=== PATIENT | female | born 1935 | race Caucasian/White ===

== ENCOUNTER 2021-08-10 13:55 | Inpatient (IN) | payer OTHER, SELFPAY ==
[~2021-08-10] VITALS: Ht 165.1 cm; Wt 90.3 kg
[2021-08-10 14:00] VITALS: BP_SYST 122
[2021-08-10] MEDS ORDERED: FAMO20TA8 PO (15:43)
[2021-08-10] MEDS ORDERED: DIVA500T2 PO (15:43)
[2021-08-10] MEDS ORDERED: FLUO40CA8 PO (15:43)
[2021-08-10] MEDS ORDERED: NACL 0.9% 1,000 ML IV ONE (15:45)
[2021-08-10 16:11] LABS: BASOPHILS # (AUTO) 0.2 K/uL (0.0-0.2); EOSINOPHILS # (AUTO) 0.1 K/uL (0.0-0.4); EOSINOPHILS % (AUTO) 0.8 % (0.0-4.0); HEMATOCRIT 29.9 % (36-48); HEMOGLOBIN 9.9 g/dL (12.0-16.0); LYMPHOCYTES # (AUTO) 1.1 K/uL (1.0-5.5); LYMPHOCYTES % (AUTO) 9.2 % (20.5-51.5); MEAN CORPUSCULAR HEMOGLOBIN 31 pg (27-31); MEAN CORPUSCULAR HGB CONC 33 % (32-36); MEAN CORPUSCULAR VOLUME 92 fL (79.0-98.0); MONOCYTES # (AUTO) 1.3 K/uL (0.0-1.0); MONOCYTES % (AUTO) 11.2 % (1.7-9.3); NEUTROPHILS # (AUTO) 8.9 K/uL (1.8-7.7); NEUTROPHILS % (AUTO) 76.8 % (40.0-70.0); PLATELET COUNT (AUTO) 284 K/uL (130-430); RED BLOOD CELL COUNT(AUTO) 3.24 MIL/uL (4.2-6.2); RED CELL DISTRIBUTION WIDTH 16.3 % (9.0-15.0); WHITE BLOOD COUNT (AUTO) 11.6 K/uL (4.8-10.8)
[2021-08-10 16:28] LABS: ANION GAP 7 (5-15); CHLORIDE 100 mmol/L (98-107); CREATININE 0.86 mg/dL (0.55-1.30); GLUCOSE 120 mg/dL (70-99); POTASSIUM 3.1 mmol/L (3.5-5.1); SODIUM SERUM 138 mmol/L (136-145); UREA NITROGEN, BLOOD 17 mg/dL (8-21)
[2021-08-10 16:33] LABS: INR 1.2 (0.8-1.2)
[2021-08-10 16:37] LABS: ALBUMIN 2.1 g/dL (3.4-4.8); ASPARTATE AMINOTRANSFERASE 15 U/L (10-37); TOTAL BILIRUBIN 0.2 mg/dL (0.0-1.0)
[2021-08-10 16:38] LABS: ALCOHOL, BLOOD < 3 mg/dL (<10)
[2021-08-10] MEDS ORDERED: KCL 20 mEq in 100 mL (PREMIX) 100 ML IV ONE (17:00)
[2021-08-10 17:01] LABS: ALANINE AMINOTRANSFERASE 12 U/L (12-78)
[2021-08-10 17:09] LABS: BILIRUBIN,URINE NEGATIVE (NEGATIVE); CLARITY/URINE CLEAR (CLEAR); GLUCOSE,URINE NEGATIVE (NEGATIVE); KETONES,URINE TRACE (NEGATIVE); LEUKOCYTE ESTERASE ,URINE NEGATIVE (NEGATIVE); NITRITE, URINE POSITIVE (NEGATIVE); PROTEIN URINE NEGATIVE (NEGATIVE); UROBILINOGEN,URINE 0.2 (0.2-1.0)
[2021-08-10 17:27] LABS: BLOOD, URINE TRACE (NEGATIVE); COLOR,URINE AMBER (YELLOW)
[2021-08-10] MEDS ORDERED: AZITHROMYCIN 500 MG in NS 250 ML IV ONE (17:30)
[2021-08-10] MEDS ORDERED: cefTRIAXone 1 GM IVPB PREMIX 50 ML IV ONE (17:30)
[2021-08-10] MEDS ORDERED: AZITHROMYCIN 500 MG/VIAL (ZITHROMAX) IV ONE (17:31)
[2021-08-10 17:38] LABS: BACTERIA,URINE FEW /HPF (None Seen); MUCUS,URINE None Seen /LPF (None Seen); RBC,URINE 0-3 /HPF (0-3); WBC,URINE 0-3 /HPF (0-3)
[2021-08-10 17:41] LABS: BARBITURATE, URINE NEGATIVE (NEG <=200); BENZODIAZEPINE, URINE NEGATIVE (NEG <=150); CANNABINOID, URINE NEGATIVE (NEG <=50); COCAINE, URINE NEGATIVE (NEG <=150); METHAMPHETAMINES SCREEN,URINE NEGATIVE (NEG <=500); OPIATE, URINE POSITIVE (NEG <=100); PHENCYCLIDINE SCREEN,URINE NEGATIVE (NEG <=25); UR TRICYCLIC ANTIDEPRESSANTS NEGATIVE (NEG <=300); URINE AMPHETAMINE NEGATIVE (NEG <=500); URINE METHADONE NEGATIVE (NEG <=200); URINE OXYCODONE SCREEN NEGATIVE (NEG <=100); URINE PROPOXYPHENE SCREEN NEGATIVE (NEG <=300)
[2021-08-10] MEDS ORDERED: FUROSEMIDE 20 MG/2 ML VIAL IVP ONE (17:45)
[2021-08-10] MEDS: cefTRIAXone 1 GM IVPB PREMIX 50 ML IV SCH (20:00)
[2021-08-10] MEDS ORDERED: ALBUTEROL SULFATE 0.083% 2.5 MG/3 ML VIAL.NEB INH PRN (20:00)
[2021-08-10] MEDS ORDERED: POTASSIUM CHLORIDE 20 MEQ TAB.PRT.SR PO ONE (20:15)
[2021-08-10] MEDS ORDERED: dilTIAZem HCL IVP 5 MG/ML VIAL IVP ONE (21:45)
[2021-08-11] VITALS (7 sets, daily range): BP systolic 112–135
[2021-08-11] MEDS: ENOXAPARIN SODIUM 100 MG/ML SYRINGE SUBCUT SCH ×3 (00:47→21:38)
[2021-08-11 06:59] LABS: BASOPHILS % (AUTO) 0.2 % (0.0-2.0); EOSINOPHILS # (AUTO) 0.2 K/uL (0.0-0.4); EOSINOPHILS % (AUTO) 1.6 % (0.0-4.0); HEMATOCRIT 28.2 % (36-48); HEMOGLOBIN 9.2 g/dL (12.0-16.0); LYMPHOCYTES # (AUTO) 1.1 K/uL (1.0-5.5); LYMPHOCYTES % (AUTO) 9.7 % (20.5-51.5); MEAN CORPUSCULAR HEMOGLOBIN 30 pg (27-31); MEAN CORPUSCULAR HGB CONC 33 % (32-36); MEAN CORPUSCULAR VOLUME 92 fL (79.0-98.0); MONOCYTES # (AUTO) 1.2 K/uL (0.0-1.0); MONOCYTES % (AUTO) 10.6 % (1.7-9.3); NEUTROPHILS % (AUTO) 77.9 % (40.0-70.0); PLATELET COUNT (AUTO) 311 K/uL (130-430); RED BLOOD CELL COUNT(AUTO) 3.05 MIL/uL (4.2-6.2); RED CELL DISTRIBUTION WIDTH 16.8 % (9.0-15.0); WHITE BLOOD COUNT (AUTO) 11.6 K/uL (4.8-10.8)
[2021-08-11 07:02] LABS: TOTAL IRON BIND. CAPACITY 132 ug/dL (250-450)
[2021-08-11 07:12] LABS: ALANINE AMINOTRANSFERASE 4 U/L (12-78); ALBUMIN 1.8 g/dL (3.4-4.8); ANION GAP 7 (5-15); ASPARTATE AMINOTRANSFERASE 15 U/L (10-37); CHLORIDE 103 mmol/L (98-107); CREATININE 0.59 mg/dL (0.55-1.30); GLUCOSE 88 mg/dL (70-99); POTASSIUM 3.8 mmol/L (3.5-5.1); SODIUM SERUM 140 mmol/L (136-145); TOTAL BILIRUBIN 0.1 mg/dL (0.0-1.0); UREA NITROGEN, BLOOD 13 mg/dL (8-21)
[2021-08-11 07:37] LABS: THYROID STIMULATING HORMONE 5.1 uIu/mL (0.36-3.74)
[2021-08-11] MEDS ORDERED: AMIODARONE HCL 200 MG TABLET PO ONE (08:45)
[2021-08-11] MEDS ORDERED: CARVEDILOL 3.125 MG TABLET (COREG) PO ONE (09:00)
[2021-08-11] MEDS ORDERED: *LOVENOX 1MG/KG Q12H/PHARMACY XX ONE (09:00)
[2021-08-11] MEDS ORDERED: DIVALPROEX SODIUM 500 MG TABLET( DEPAKOTE) PO ONE (09:15)
[2021-08-11] MEDS ORDERED: FAMOTIDINE 20 MG TABLET PO ONE (09:15)
[2021-08-11] MEDS ORDERED: FLUoxetine HCL 20 MG CAPSULE (PROzac) PO ONE (09:15)
[2021-08-11] MEDS: AMIODARONE HCL 200 MG TABLET PO SCH ×2 (15:09→21:35)
[2021-08-11] MEDS ORDERED: cefTRIAXone 1 GM IVPB PREMIX 50 ML IV ONE (21:07)
[2021-08-11] MEDS: cefTRIAXone 1 GM IVPB PREMIX 50 ML IV SCH (21:30)
[2021-08-11] MEDS: DIVALPROEX SODIUM 500 MG TABLET( DEPAKOTE) PO SCH (21:36)
[2021-08-11] MEDS: CARVEDILOL 3.125 MG TABLET (COREG) PO SCH (21:37)
[2021-08-12 06:00] VITALS: BP_SYST 116
[2021-08-12] MEDS: AMIODARONE HCL 200 MG TABLET PO SCH ×3 (06:53→21:21)
[2021-08-12 07:02] LABS: BASOPHILS % (AUTO) 0.1 % (0.0-2.0); EOSINOPHILS # (AUTO) 0.2 K/uL (0.0-0.4); EOSINOPHILS % (AUTO) 1.5 % (0.0-4.0); HEMATOCRIT 25.5 % (36-48); HEMOGLOBIN 8.3 g/dL (12.0-16.0); LYMPHOCYTES # (AUTO) 1.2 K/uL (1.0-5.5); LYMPHOCYTES % (AUTO) 12.1 % (20.5-51.5); MEAN CORPUSCULAR HEMOGLOBIN 30 pg (27-31); MEAN CORPUSCULAR HGB CONC 33 % (32-36); MEAN CORPUSCULAR VOLUME 93 fL (79.0-98.0); MONOCYTES # (AUTO) 1.2 K/uL (0.0-1.0); MONOCYTES % (AUTO) 12.3 % (1.7-9.3); NEUTROPHILS # (AUTO) 7.5 K/uL (1.8-7.7); PLATELET COUNT (AUTO) 328 K/uL (130-430); RED BLOOD CELL COUNT(AUTO) 2.74 MIL/uL (4.2-6.2); RED CELL DISTRIBUTION WIDTH 16.6 % (9.0-15.0); WHITE BLOOD COUNT (AUTO) 10.1 K/uL (4.8-10.8)
[2021-08-12 07:56] LABS: ALANINE AMINOTRANSFERASE 4 U/L (12-78); ALBUMIN 1.6 g/dL (3.4-4.8); ANION GAP 6 (5-15); ASPARTATE AMINOTRANSFERASE 15 U/L (10-37); CHLORIDE 103 mmol/L (98-107); CREATININE 0.64 mg/dL (0.55-1.30); GLUCOSE 99 mg/dL (70-99); POTASSIUM 3.4 mmol/L (3.5-5.1); SODIUM SERUM 140 mmol/L (136-145); THYROID STIMULATING HORMONE 3.99 uIu/mL (0.36-3.74); TOTAL BILIRUBIN 0.2 mg/dL (0.0-1.0); UREA NITROGEN, BLOOD 10 mg/dL (8-21)
[2021-08-12 09:51] LABS: CHOLESTEROL 82 mg/dL (<200); HDL CHOLESTEROL 21 mg/dL (>55); LDL CHOLESTEROL 46 mg/dL (<100); TRIGLYCERIDES 83 mg/dL (30-150)
[2021-08-12 11:37] VITALS: BP_SYST 138
[2021-08-12] MEDS: FLUoxetine HCL 20 MG CAPSULE (PROzac) PO SCH (13:02)
[2021-08-12] MEDS: FAMOTIDINE 20 MG TABLET PO SCH (13:02)
[2021-08-12] MEDS: ENOXAPARIN SODIUM 100 MG/ML SYRINGE SUBCUT SCH ×2 (13:02→21:24)
[2021-08-12] MEDS: DIVALPROEX SODIUM 500 MG TABLET( DEPAKOTE) PO SCH ×2 (13:03→21:19)
[2021-08-12] MEDS: CARVEDILOL 3.125 MG TABLET (COREG) PO SCH ×2 (13:04→21:20)
[2021-08-12 16:25] VITALS: BP_SYST 140
[2021-08-12] MEDS ORDERED: ED NON STOCK ORDER 1 EA MISC PO ONE (18:30)
[2021-08-12 20:12] VITALS: BP_SYST 118
[2021-08-12] MEDS: cefTRIAXone 1 GM IVPB PREMIX 50 ML IV SCH (21:19)
[2021-08-13] VITALS: BP_SYST 122
[2021-08-13] MEDS: AMIODARONE HCL 200 MG TABLET PO SCH ×3 (05:49→21:20)
[2021-08-13 08:00] VITALS: BP_SYST 117
[2021-08-13] MEDS: DIVALPROEX SODIUM 500 MG TABLET( DEPAKOTE) PO SCH ×2 (09:07→21:20)
[2021-08-13] MEDS: FAMOTIDINE 20 MG TABLET PO SCH (09:08)
[2021-08-13] MEDS: FLUoxetine HCL 20 MG CAPSULE (PROzac) PO SCH (09:09)
[2021-08-13] MEDS: ENOXAPARIN SODIUM 100 MG/ML SYRINGE SUBCUT SCH ×2 (09:11→21:20)
[2021-08-13] MEDS: PATIENT'S OWN CAP PO SCH ×2 (14:15→18:05)
[2021-08-13 14:31] VITALS: BP_SYST 116
[2021-08-13 18:46] VITALS: BP_SYST 118
[2021-08-13 20:00] VITALS: BP_SYST 130
[2021-08-13] MEDS: cefTRIAXone 1 GM IVPB PREMIX 50 ML IV SCH (21:19)
[2021-08-13] MEDS: CARVEDILOL 3.125 MG TABLET (COREG) PO SCH (21:20)
[2021-08-14] VITALS: BP_SYST 128
[2021-08-14] MEDS: AMIODARONE HCL 200 MG TABLET PO SCH ×2 (06:12→21:30)
[2021-08-14] MEDS: PATIENT'S OWN CAP PO SCH ×3 (07:00→17:00)
[2021-08-14] MEDS: FLUoxetine HCL 20 MG CAPSULE (PROzac) PO SCH (09:00)
[2021-08-14] MEDS: CARVEDILOL 3.125 MG TABLET (COREG) PO SCH ×2 (09:00→21:00)
[2021-08-14] MEDS: ACETAMINOPHEN 325 MG TABLET PO PRN ×2 (09:10→21:31)
[2021-08-14] MEDS: DIVALPROEX SODIUM 500 MG TABLET( DEPAKOTE) PO SCH ×2 (09:10→21:29)
[2021-08-14] MEDS: FAMOTIDINE 20 MG TABLET PO SCH (09:11)
[2021-08-14] MEDS: ENOXAPARIN SODIUM 100 MG/ML SYRINGE SUBCUT SCH ×2 (09:13→21:31)
[2021-08-14 11:31] VITALS: BP_SYST 104
[2021-08-14 15:31] VITALS: BP_SYST 110
[2021-08-14 21:20] VITALS: BP_SYST 110
[2021-08-14] MEDS: cefTRIAXone 1 GM IVPB PREMIX 50 ML IV SCH (21:29)
[2021-08-15 00:30] VITALS: BP_SYST 135
[2021-08-15] MEDS: PATIENT'S OWN CAP PO SCH ×3 (07:00→17:00)
[2021-08-15 07:49] LABS: BASOPHILS % (AUTO) 0.3 % (0.0-2.0); EOSINOPHILS # (AUTO) 0.1 K/uL (0.0-0.4); EOSINOPHILS % (AUTO) 0.9 % (0.0-4.0); HEMATOCRIT 25.4 % (36-48); HEMOGLOBIN 8.3 g/dL (12.0-16.0); LYMPHOCYTES # (AUTO) 1.2 K/uL (1.0-5.5); LYMPHOCYTES % (AUTO) 18.4 % (20.5-51.5); MEAN CORPUSCULAR HEMOGLOBIN 30 pg (27-31); MEAN CORPUSCULAR HGB CONC 33 % (32-36); MEAN CORPUSCULAR VOLUME 92 fL (79.0-98.0); MONOCYTES # (AUTO) 1.2 K/uL (0.0-1.0); MONOCYTES % (AUTO) 18.4 % (1.7-9.3); NEUTROPHILS # (AUTO) 4.1 K/uL (1.8-7.7); PLATELET COUNT (AUTO) 388 K/uL (130-430); RED BLOOD CELL COUNT(AUTO) 2.78 MIL/uL (4.2-6.2); RED CELL DISTRIBUTION WIDTH 16.3 % (9.0-15.0); WHITE BLOOD COUNT (AUTO) 6.6 K/uL (4.8-10.8)
[2021-08-15 08:00] VITALS: BP_SYST 122
[2021-08-15 08:04] LABS: ALANINE AMINOTRANSFERASE 6 U/L (12-78); ALBUMIN 1.6 g/dL (3.4-4.8); ANION GAP 6 (5-15); ASPARTATE AMINOTRANSFERASE 18 U/L (10-37); CALCIUM 7.2 mg/dL (8.4-11.0); CHLORIDE 101 mmol/L (98-107); CREATININE 0.68 mg/dL (0.55-1.30); GLUCOSE 75 mg/dL (70-99); SODIUM SERUM 138 mmol/L (136-145); TOTAL BILIRUBIN 0.2 mg/dL (0.0-1.0); UREA NITROGEN, BLOOD 8 mg/dL (8-21)
[2021-08-15] MEDS: ENOXAPARIN SODIUM 100 MG/ML SYRINGE SUBCUT SCH (08:37)
[2021-08-15] MEDS: AMIODARONE HCL 200 MG TABLET PO SCH ×2 (08:39→21:13)
[2021-08-15] MEDS: DIVALPROEX SODIUM 500 MG TABLET( DEPAKOTE) PO SCH ×2 (08:40→21:11)
[2021-08-15] MEDS: CARVEDILOL 3.125 MG TABLET (COREG) PO SCH ×2 (08:40→21:00)
[2021-08-15] MEDS: FAMOTIDINE 20 MG TABLET PO SCH (08:40)
[2021-08-15] MEDS: FLUoxetine HCL 20 MG CAPSULE (PROzac) PO SCH (08:41)
[2021-08-15] MEDS ORDERED: POTASSIUM CHLORIDE 20 MEQ/PKT PACKET PO ONE (10:30)
[2021-08-15 11:44] VITALS: BP_SYST 119
[2021-08-15 16:23] VITALS: BP_SYST 122
[2021-08-15 20:04] VITALS: BP_SYST 110
[2021-08-15] MEDS: cefTRIAXone 1 GM IVPB PREMIX 50 ML IV SCH (21:10)
[2021-08-15] MEDS: APIXABAN 2.5 MG TABLET PO SCH (21:11)
[2021-08-16] VITALS (7 sets, daily range): BP systolic 116–129
[2021-08-16] MEDS: PATIENT'S OWN CAP PO SCH ×3 (07:00→17:38)
[2021-08-16] MEDS: FLUoxetine HCL 20 MG CAPSULE (PROzac) PO SCH (08:40)
[2021-08-16] MEDS: FAMOTIDINE 20 MG TABLET PO SCH (08:41)
[2021-08-16] MEDS: DIVALPROEX SODIUM 500 MG TABLET( DEPAKOTE) PO SCH ×2 (08:41→21:52)
[2021-08-16] MEDS: AMIODARONE HCL 200 MG TABLET PO SCH ×2 (08:43→21:00)
[2021-08-16] MEDS: APIXABAN 2.5 MG TABLET PO SCH ×2 (08:44→21:54)
[2021-08-16] MEDS: CARVEDILOL 3.125 MG TABLET (COREG) PO SCH ×2 (08:45→21:52)
[2021-08-16] MEDS: ACETAMINOPHEN 325 MG TABLET PO PRN (17:39)
[2021-08-16] MEDS: cefTRIAXone 1 GM IVPB PREMIX 50 ML IV SCH (21:50)
[2021-08-17 00:16] VITALS: BP_SYST 128
[2021-08-17] MEDS: PATIENT'S OWN CAP PO SCH ×3 (06:56→16:40)
[2021-08-17 07:26] LABS: ANION GAP 6 (5-15); CHLORIDE 101 mmol/L (98-107); CREATININE 0.67 mg/dL (0.55-1.30); GLUCOSE 93 mg/dL (70-99); POTASSIUM 3.2 mmol/L (3.5-5.1); SODIUM SERUM 140 mmol/L (136-145); UREA NITROGEN, BLOOD 6 mg/dL (8-21)
[2021-08-17 08:01] VITALS: BP_SYST 118
[2021-08-17 08:33] LABS: BASOPHILS % (AUTO) 0.3 % (0.0-2.0); EOSINOPHILS % (AUTO) 0.8 % (0.0-4.0); HEMATOCRIT 25.3 % (36-48); HEMOGLOBIN 8.4 g/dL (12.0-16.0); LYMPHOCYTES # (AUTO) 1.1 K/uL (1.0-5.5); LYMPHOCYTES % (AUTO) 18.5 % (20.5-51.5); MEAN CORPUSCULAR HEMOGLOBIN 30 pg (27-31); MEAN CORPUSCULAR HGB CONC 33 % (32-36); MEAN CORPUSCULAR VOLUME 91 fL (79.0-98.0); MONOCYTES # (AUTO) 0.9 K/uL (0.0-1.0); MONOCYTES % (AUTO) 15.4 % (1.7-9.3); NEUTROPHILS # (AUTO) 3.8 K/uL (1.8-7.7); PLATELET COUNT (AUTO) 335 K/uL (130-430); RED BLOOD CELL COUNT(AUTO) 2.77 MIL/uL (4.2-6.2); RED CELL DISTRIBUTION WIDTH 16.1 % (9.0-15.0); WHITE BLOOD COUNT (AUTO) 5.8 K/uL (4.8-10.8)
[2021-08-17 08:57] LABS: CALCIUM 6.7 mg/dL (8.4-11.0)
[2021-08-17] MEDS: CARVEDILOL 3.125 MG TABLET (COREG) PO SCH ×2 (09:00→21:47)
[2021-08-17] MEDS: FAMOTIDINE 20 MG TABLET PO SCH (09:46)
[2021-08-17] MEDS: DIVALPROEX SODIUM 500 MG TABLET( DEPAKOTE) PO SCH ×2 (09:46→21:48)
[2021-08-17] MEDS: FLUoxetine HCL 20 MG CAPSULE (PROzac) PO SCH (09:46)
[2021-08-17] MEDS: APIXABAN 2.5 MG TABLET PO SCH ×2 (09:48→21:51)
[2021-08-17] MEDS: AMIODARONE HCL 200 MG TABLET PO SCH ×2 (09:53→21:48)
[2021-08-17] MEDS ORDERED: CALCIUM GLUCONATE 1 GM in NS 100 ML IV ONE (10:00)
[2021-08-17] MEDS ORDERED: AMIO200T61 PO (10:59)
[2021-08-17] MEDS ORDERED: APIX2.5T PO (10:59)
[2021-08-17] MEDS ORDERED: COR3.125 PO (10:59)
[2021-08-17] MEDS ORDERED: CALC-823 PO (11:00)
[2021-08-17] MEDS ORDERED: POTASSIUM CHLORIDE 20 MEQ TAB.PRT.SR PO ONE (11:15)
[2021-08-17 12:00] VITALS: BP_SYST 130
[2021-08-17 16:00] VITALS: BP_SYST 131
[2021-08-17 20:00] VITALS: BP_SYST 135
[2021-08-17] MEDS: cefTRIAXone 1 GM IVPB PREMIX 50 ML IV SCH (21:46)
[2021-08-18 00:35] VITALS: BP_SYST 99
[2021-08-18 06:42] LABS: BASOPHILS % (AUTO) 0.5 % (0.0-2.0); EOSINOPHILS # (AUTO) 0.1 K/uL (0.0-0.4); EOSINOPHILS % (AUTO) 1.4 % (0.0-4.0); HEMATOCRIT 26.9 % (36-48); HEMOGLOBIN 8.8 g/dL (12.0-16.0); LYMPHOCYTES # (AUTO) 1.2 K/uL (1.0-5.5); LYMPHOCYTES % (AUTO) 20.5 % (20.5-51.5); MEAN CORPUSCULAR HEMOGLOBIN 30 pg (27-31); MEAN CORPUSCULAR HGB CONC 33 % (32-36); MEAN CORPUSCULAR VOLUME 92 fL (79.0-98.0); MONOCYTES # (AUTO) 0.8 K/uL (0.0-1.0); MONOCYTES % (AUTO) 13.1 % (1.7-9.3); NEUTROPHILS # (AUTO) 3.9 K/uL (1.8-7.7); NEUTROPHILS % (AUTO) 64.5 % (40.0-70.0); PLATELET COUNT (AUTO) 336 K/uL (130-430); RED BLOOD CELL COUNT(AUTO) 2.93 MIL/uL (4.2-6.2); RED CELL DISTRIBUTION WIDTH 16.4 % (9.0-15.0)
[2021-08-18] MEDS: PATIENT'S OWN CAP PO SCH ×3 (06:44→16:25)
[2021-08-18 06:58] LABS: ALBUMIN 1.5 g/dL (3.4-4.8); ANION GAP 6 (5-15); ASPARTATE AMINOTRANSFERASE 27 U/L (10-37); C-REACTIVE PROTEIN QUANT 5.2 mg/dL (0-0.5); CALCIUM 7.3 mg/dL (8.4-11.0); CHLORIDE 101 mmol/L (98-107); CREATININE 0.72 mg/dL (0.55-1.30); GLUCOSE 83 mg/dL (70-99); PHOSPHORUS 3.3 mg/dL (2.7-4.5); POTASSIUM 3.9 mmol/L (3.5-5.1); SODIUM SERUM 137 mmol/L (136-145); TOTAL BILIRUBIN 0.2 mg/dL (0.0-1.0); UREA NITROGEN, BLOOD 6 mg/dL (8-21)
[2021-08-18 08:27] VITALS: BP_SYST 132
[2021-08-18 08:45] LABS: ALANINE AMINOTRANSFERASE 9 U/L (12-78)
[2021-08-18] MEDS: FAMOTIDINE 20 MG TABLET PO SCH (09:02)
[2021-08-18] MEDS: FLUoxetine HCL 20 MG CAPSULE (PROzac) PO SCH (09:03)
[2021-08-18] MEDS: CARVEDILOL 3.125 MG TABLET (COREG) PO SCH (09:03)
[2021-08-18] MEDS: DIVALPROEX SODIUM 500 MG TABLET( DEPAKOTE) PO SCH (09:03)
[2021-08-18] MEDS: AMIODARONE HCL 200 MG TABLET PO SCH (09:05)
[2021-08-18] MEDS: APIXABAN 2.5 MG TABLET PO SCH (09:06)
[2021-08-18 09:12] LABS: ERYTHROCYTE SEDIMENTATION RATE 48 MM/HR (0-20)
[2021-08-18 12:42] VITALS: BP_SYST 100
[2021-08-18] MEDS: ACETAMINOPHEN 325 MG TABLET PO PRN (16:24)
[2021-08-18 16:26] VITALS: BP_SYST 103
[2021-08-18 17:10] VITALS: BP_SYST 106
== END 2021-08-18 17:50 | disposition home health service (06) | DRG 308 ==
LOC: SED 13:55 → STU 19:59
PROVIDERS: ADMIT Internal Medicine Hospice and Palliative Medicine; ATTEND Internal Medicine Hospice and Palliative Medicine
DX: I48.91 Unspecified atrial fibrillation (principal); G93.41 Metabolic encephalopathy; N39.0 Urinary tract infection, site not specified; I50.9 Heart failure, unspecified; G40.909 Epilepsy, unspecified, not intractable, without status epilepticus; Z20.822 Contact with and (suspected) exposure to COVID-19; I11.0 Hypertensive heart disease with heart failure; E87.6 Hypokalemia; F03.90 Unspecified dementia, unspecified severity, without behavioral disturbance, psychotic disturbance, mood disturbance, and anxiety; Z79.899 Other long term (current) drug therapy; Z86.73 Personal history of transient ischemic attack (TIA), and cerebral infarction without residual deficits; Z87.891 Personal history of nicotine dependence; Z90.710 Acquired absence of both cervix and uterus; Z93.3 Colostomy status
CPT/HCPCS: 36415; 70450-TC; 71045; 76376; 76700-TC; 80048; 80053; 80061; 80164; 80307; 81000; 83540; 83550; 83605; 83735; 83880; 84100; 84443; 84484; 85025; 85610-TC; 85651-TC; 85730-TC; 86140; 87040; 87070-TC; 87081; 87086; 92610-GN; 93005; 93306; 94760; 95816; 96361; 96365; 96368; 97110-GP; 97116-GP; 97530-GP; 99285; G0378; G0482; J0456; J0610; J0696; J1650; J1940; J3480; J3490

== ENCOUNTER 2022-06-21 21:48 | Inpatient (IN) | payer OTHER ==
[~2022-06-21] VITALS: Ht 170.2 cm; Wt 62.1 kg
[~2022-06-21 21:48] MED LIST: ALBU2.5V7 INH; AMIO200T61 PO; APIX2.5T PO; CALC-823 PO; CARV25TA55 GT; COR3.125 PO; DIVA500T2 PO; FAMO20TA8 PO; FLUO40CA8 PO; FURO-150 PO
[2022-06-21 22:51] VITALS: BP_SYST 106
[2022-06-22 02:44] LABS: BASOPHILS # (AUTO) 0.1 K/uL (0.0-0.2); BASOPHILS % (AUTO) 0.5 % (0.0-2.0); EOSINOPHILS % (AUTO) 0.1 % (0.0-4.0); HEMATOCRIT 26.3 % (36-48); HEMOGLOBIN 8.8 g/dL (12.0-16.0); LYMPHOCYTES # (AUTO) 1.2 K/uL (1.0-5.5); LYMPHOCYTES % (AUTO) 5.4 % (20.5-51.5); MEAN CORPUSCULAR HEMOGLOBIN 30 pg (27-31); MEAN CORPUSCULAR HGB CONC 34 % (32-36); MEAN CORPUSCULAR VOLUME 88 fL (79.0-98.0); MONOCYTES # (AUTO) 2.9 K/uL (0.0-1.0); MONOCYTES % (AUTO) 12.6 % (1.7-9.3); NEUTROPHILS # (AUTO) 18.6 K/uL (1.8-7.7); NEUTROPHILS % (AUTO) 81.4 % (40.0-70.0); PLATELET COUNT (AUTO) 285 K/uL (130-430); RED CELL DISTRIBUTION WIDTH 14.2 % (9.0-15.0); WHITE BLOOD COUNT (AUTO) 22.9 K/uL (4.8-10.8)
[2022-06-22] MEDS ORDERED: dilTIAZem HCL IVP 5 MG/ML VIAL IVP ONE (02:45)
[2022-06-22] MEDS ORDERED: NACL 0.9% 1,000 ML IV ONE (02:45)
[2022-06-22 03:09] LABS: ANION GAP 3 (5-15); CALCIUM 8.2 mg/dL (8.4-11.0); CHLORIDE 95 mmol/L (98-107); CREATININE 0.79 mg/dL (0.55-1.30); GLUCOSE 129 mg/dL (70-99); UREA NITROGEN, BLOOD 18 mg/dL (8-21)
[2022-06-22 03:28] LABS: ALANINE AMINOTRANSFERASE 12 U/L (12-78); ALBUMIN 1.8 g/dL (3.4-4.8); ASPARTATE AMINOTRANSFERASE 15 U/L (10-37); LIPASE 124 U/L (73-393); TOTAL BILIRUBIN 0.6 mg/dL (0.0-1.0)
[2022-06-22] MEDS ORDERED: PIPERACILLIN/TAZO 3.375 GM in NS 50 ML IV ONE (03:30)
[2022-06-22] MEDS ORDERED: metroNIDAZOLE 500 mg/NS 100 ML IV ONE (03:30)
[2022-06-22 03:50] LABS: INR 1.1 (0.8-1.2); PROTHROMBIN TIME 11.5 SECS (9.5-12.5)
[2022-06-22 04:15] LABS: BILIRUBIN,URINE NEGATIVE (NEGATIVE); BLOOD, URINE 3+ (NEGATIVE); COLOR,URINE YELLOW (YELLOW); GLUCOSE,URINE NEGATIVE (NEGATIVE); KETONES,URINE NEGATIVE (NEGATIVE); LEUKOCYTE ESTERASE ,URINE NEGATIVE (NEGATIVE); NITRITE, URINE NEGATIVE (NEGATIVE); PROTEIN URINE TRACE (NEGATIVE); UROBILINOGEN,URINE 0.2 (0.2-1.0)
[2022-06-22 04:18] LABS: CLARITY/URINE HAZY (CLEAR)
[2022-06-22 04:27] LABS: BACTERIA,URINE None Seen /HPF (None Seen); RBC,URINE >100 /HPF (0-3)
[2022-06-22] MEDS ORDERED: PIPERACILLIN/TAZOBACTAM 3.375 GM/VIAL (ZOSYN) IV ONE (04:34)
[2022-06-22] MEDS ORDERED: CARV12.548 PO (10:48)
[2022-06-22] MEDS ORDERED: CARVEDILOL 3.125 MG TABLET (COREG) PO ONE (12:30)
[2022-06-22] MEDS ORDERED: LOSARTAN POTASSIUM 25 MG TABLET PO ONE (12:30)
[2022-06-22] MEDS ORDERED: ISOSORBIDE MONONITRATE 30 MG TAB.ER.24H PO ONE (12:30)
[2022-06-22] MEDS: AZITHROMYCIN 250 MG in NS 250 ML IV SCH (20:03)
[2022-06-22 21:00] VITALS: BP_SYST 105
[2022-06-23] MEDS: CARVEDILOL 3.125 MG TABLET (COREG) PO SCH ×3 (00:47→21:00)
[2022-06-23] MEDS: ASCORBIC ACID 500 MG TABLET PO SCH ×3 (00:48→21:33)
[2022-06-23] MEDS: PIPERACILLIN/TAZO 4.5GM/DEX-IS 100 ML IV SCH ×3 (00:51→13:05)
[2022-06-23] MEDS: methylPREDNISolone SOD SUCC/PF 62.5 MG/ML VIAL IVP SCH ×3 (00:51→21:41)
[2022-06-23 00:58] VITALS: BP_SYST 114
[2022-06-23 05:05] VITALS: BP_SYST 105
[2022-06-23 06:49] LABS: BASOPHILS % (AUTO) 0.1 % (0.0-2.0); EOSINOPHILS % (AUTO) 0.2 % (0.0-4.0); HEMATOCRIT 24.3 % (36-48); HEMOGLOBIN 8.3 g/dL (12.0-16.0); LYMPHOCYTES # (AUTO) 0.5 K/uL (1.0-5.5); LYMPHOCYTES % (AUTO) 5.3 % (20.5-51.5); MEAN CORPUSCULAR HEMOGLOBIN 30 pg (27-31); MEAN CORPUSCULAR HGB CONC 34 % (32-36); MEAN CORPUSCULAR VOLUME 89 fL (79.0-98.0); MONOCYTES # (AUTO) 0.6 K/uL (0.0-1.0); MONOCYTES % (AUTO) 5.8 % (1.7-9.3); NEUTROPHILS # (AUTO) 8.5 K/uL (1.8-7.7); NEUTROPHILS % (AUTO) 88.6 % (40.0-70.0); PLATELET COUNT (AUTO) 200 K/uL (130-430); RED BLOOD CELL COUNT(AUTO) 2.74 MIL/uL (4.2-6.2); RED CELL DISTRIBUTION WIDTH 14.2 % (9.0-15.0); WHITE BLOOD COUNT (AUTO) 9.5 K/uL (4.8-10.8)
[2022-06-23 07:01] LABS: ANION GAP 4 (5-15); CALCIUM 8.1 mg/dL (8.4-11.0); CHLORIDE 100 mmol/L (98-107); GLUCOSE 154 mg/dL (70-99); UREA NITROGEN, BLOOD 16 mg/dL (8-21)
[2022-06-23] MEDS: CHOLECALCIFEROL (VITAMIN D3) 5,000 UNIT TABLET PO SCH (10:01)
[2022-06-23] MEDS: ISOSORBIDE MONONITRATE 30 MG TAB.ER.24H PO SCH (10:01)
[2022-06-23 10:02] VITALS: BP_SYST 96
[2022-06-23 11:37] VITALS: BP_SYST 104
[2022-06-23] MEDS: LOSARTAN POTASSIUM 25 MG TABLET PO SCH (13:05)
[2022-06-23 16:20] VITALS: BP_SYST 106
[2022-06-23] MEDS ORDERED: *LOVENOX 1MG/KG Q12H/PHARMACY XX ONE (17:00)
[2022-06-23 20:00] VITALS: BP_SYST 99
[2022-06-23] MEDS: ENOXAPARIN SODIUM 30 MG/0.3 ML SYRINGE SUBCUT SCH (21:34)
[2022-06-23] MEDS: AZITHROMYCIN 250 MG in NS 250 ML IV SCH (21:42)
[2022-06-24] MEDS: PIPERACILLIN/TAZO 4.5GM/DEX-IS 100 ML IV SCH ×4 (01:46→21:42)
[2022-06-24 03:00] VITALS: BP_SYST 99
[2022-06-24 07:49] LABS: BASOPHILS % (AUTO) 0.1 % (0.0-2.0); HEMATOCRIT 22.8 % (36-48); HEMOGLOBIN 7.6 g/dL (12.0-16.0); LYMPHOCYTES # (AUTO) 0.5 K/uL (1.0-5.5); LYMPHOCYTES % (AUTO) 3.4 % (20.5-51.5); MEAN CORPUSCULAR HEMOGLOBIN 30 pg (27-31); MEAN CORPUSCULAR HGB CONC 34 % (32-36); MEAN CORPUSCULAR VOLUME 89 fL (79.0-98.0); MONOCYTES # (AUTO) 0.8 K/uL (0.0-1.0); MONOCYTES % (AUTO) 5.7 % (1.7-9.3); NEUTROPHILS # (AUTO) 12.9 K/uL (1.8-7.7); NEUTROPHILS % (AUTO) 90.8 % (40.0-70.0); PLATELET COUNT (AUTO) 232 K/uL (130-430); RED BLOOD CELL COUNT(AUTO) 2.57 MIL/uL (4.2-6.2); RED CELL DISTRIBUTION WIDTH 14.1 % (9.0-15.0); WHITE BLOOD COUNT (AUTO) 14.2 K/uL (4.8-10.8)
[2022-06-24 07:59] LABS: ANION GAP 5 (5-15); CALCIUM 7.9 mg/dL (8.4-11.0); CHLORIDE 99 mmol/L (98-107); CREATININE 0.95 mg/dL (0.55-1.30); GLUCOSE 234 mg/dL (70-99); UREA NITROGEN, BLOOD 21 mg/dL (8-21)
[2022-06-24 08:15] VITALS: BP_SYST 105
[2022-06-24] MEDS: methylPREDNISolone SOD SUCC/PF 62.5 MG/ML VIAL IVP SCH (08:19)
[2022-06-24] MEDS: ISOSORBIDE MONONITRATE 30 MG TAB.ER.24H PO SCH (08:19)
[2022-06-24] MEDS: ASCORBIC ACID 500 MG TABLET PO SCH ×2 (08:19→21:42)
[2022-06-24] MEDS: CHOLECALCIFEROL (VITAMIN D3) 5,000 UNIT TABLET PO SCH (08:20)
[2022-06-24] MEDS: ENOXAPARIN SODIUM 30 MG/0.3 ML SYRINGE SUBCUT SCH ×2 (08:21→21:43)
[2022-06-24] MEDS: LOSARTAN POTASSIUM 25 MG TABLET PO SCH (08:21)
[2022-06-24] MEDS: CARVEDILOL 3.125 MG TABLET (COREG) PO SCH ×2 (08:21→21:00)
[2022-06-24 12:00] VITALS: BP_SYST 101
[2022-06-24] MEDS ORDERED: GLUCOSE (DEXTROSE) ORAL GEL -Adults PO PRN (12:15)
[2022-06-24] MEDS ORDERED: D5W 1,000 ML IV PRN (12:15)
[2022-06-24] MEDS ORDERED: DEXTROSE 50% JECT 50 ML DISP.SYRIN IVP PRN (12:15)
[2022-06-24] MEDS: INSULIN REGULAR, HUMAN 100 UNITS/ML, 3 ML VIAL (humuLIN R) SUBCUT PRN (12:55)
[2022-06-24 16:00] VITALS: BP_SYST 103
[2022-06-24] MEDS: AZITHROMYCIN 250 MG in NS 250 ML IV SCH (20:00)
[2022-06-25 00:08] VITALS: BP_SYST 96
[2022-06-25] MEDS: INSULIN REGULAR, HUMAN 100 UNITS/ML, 3 ML VIAL (humuLIN R) SUBCUT PRN ×2 (01:21→13:30)
[2022-06-25] MEDS: PIPERACILLIN/TAZO 4.5GM/DEX-IS 100 ML IV SCH ×3 (06:43→22:28)
[2022-06-25 07:04] LABS: BASOPHILS % (AUTO) 0.1 % (0.0-2.0); HEMATOCRIT 23.6 % (36-48); HEMOGLOBIN 7.9 g/dL (12.0-16.0); LYMPHOCYTES # (AUTO) 0.6 K/uL (1.0-5.5); LYMPHOCYTES % (AUTO) 5.4 % (20.5-51.5); MEAN CORPUSCULAR HEMOGLOBIN 30 pg (27-31); MEAN CORPUSCULAR HGB CONC 34 % (32-36); MEAN CORPUSCULAR VOLUME 89 fL (79.0-98.0); MONOCYTES # (AUTO) 0.8 K/uL (0.0-1.0); MONOCYTES % (AUTO) 6.9 % (1.7-9.3); NEUTROPHILS # (AUTO) 9.8 K/uL (1.8-7.7); NEUTROPHILS % (AUTO) 87.6 % (40.0-70.0); PLATELET COUNT (AUTO) 248 K/uL (130-430); RED BLOOD CELL COUNT(AUTO) 2.65 MIL/uL (4.2-6.2); RED CELL DISTRIBUTION WIDTH 14.2 % (9.0-15.0); WHITE BLOOD COUNT (AUTO) 11.2 K/uL (4.8-10.8)
[2022-06-25 07:39] LABS: ANION GAP 7 (5-15); CALCIUM 8.2 mg/dL (8.4-11.0); CHLORIDE 101 mmol/L (98-107); CREATININE 0.81 mg/dL (0.55-1.30); GLUCOSE 106 mg/dL (70-99); UREA NITROGEN, BLOOD 23 mg/dL (8-21)
[2022-06-25] MEDS: CHOLECALCIFEROL (VITAMIN D3) 5,000 UNIT TABLET PO SCH (10:29)
[2022-06-25] MEDS: methylPREDNISolone SOD SUCC/PF 62.5 MG/ML VIAL IVP SCH (10:29)
[2022-06-25] MEDS: ASCORBIC ACID 500 MG TABLET PO SCH ×2 (10:29→22:28)
[2022-06-25 10:30] VITALS: BP_SYST 101
[2022-06-25] MEDS: ISOSORBIDE MONONITRATE 30 MG TAB.ER.24H PO SCH (10:30)
[2022-06-25] MEDS: CARVEDILOL 3.125 MG TABLET (COREG) PO SCH ×2 (10:30→22:29)
[2022-06-25] MEDS: LOSARTAN POTASSIUM 25 MG TABLET PO SCH (10:30)
[2022-06-25 12:00] VITALS: BP_SYST 101
[2022-06-25 16:00] VITALS: BP_SYST 98
[2022-06-25 20:00] VITALS: BP_SYST 135
[2022-06-25] MEDS: AZITHROMYCIN 250 MG in NS 250 ML IV SCH (20:14)
[2022-06-25 20:47] LABS: INR 1.1 (0.8-1.2); PROTHROMBIN TIME 10.8 SECS (9.5-12.5)
[2022-06-26 02:04] VITALS: BP_SYST 133
[2022-06-26] MEDS: PIPERACILLIN/TAZO 4.5GM/DEX-IS 100 ML IV SCH ×3 (06:06→22:20)
[2022-06-26] MEDS: INSULIN REGULAR, HUMAN 100 UNITS/ML, 3 ML VIAL (humuLIN R) SUBCUT PRN (06:14)
[2022-06-26 10:16] VITALS: BP_SYST 131
[2022-06-26] MEDS: LOSARTAN POTASSIUM 25 MG TABLET PO SCH (10:21)
[2022-06-26] MEDS: ASCORBIC ACID 500 MG TABLET PO SCH ×2 (10:21→20:32)
[2022-06-26] MEDS: ISOSORBIDE MONONITRATE 30 MG TAB.ER.24H PO SCH (10:22)
[2022-06-26] MEDS: CARVEDILOL 3.125 MG TABLET (COREG) PO SCH ×2 (10:23→20:33)
[2022-06-26] MEDS: CHOLECALCIFEROL (VITAMIN D3) 5,000 UNIT TABLET PO SCH (10:24)
[2022-06-26] MEDS: methylPREDNISolone SOD SUCC/PF 62.5 MG/ML VIAL IVP SCH (10:30)
[2022-06-26 11:11] VITALS: BP_SYST 135
[2022-06-26] MEDS ORDERED: CHOL500013 PO (11:52)
[2022-06-26] MEDS ORDERED: Zinc Sulfate PO (11:52)
[2022-06-26] MEDS ORDERED: PRED10TA PO (11:52)
[2022-06-26] MEDS ORDERED: KEF250/5 GT (11:53)
[2022-06-26 16:54] VITALS: BP_SYST 126
[2022-06-26 20:00] VITALS: BP_SYST 144
[2022-06-26] MEDS: AZITHROMYCIN 250 MG in NS 250 ML IV SCH (20:12)
[2022-06-27] VITALS: BP_SYST 140
[2022-06-27] MEDS: INSULIN REGULAR, HUMAN 100 UNITS/ML, 3 ML VIAL (humuLIN R) SUBCUT PRN ×2 (01:08→12:13)
[2022-06-27] MEDS: PIPERACILLIN/TAZO 4.5GM/DEX-IS 100 ML IV SCH ×2 (06:22→13:41)
[2022-06-27 08:38] VITALS: BP_SYST 118
[2022-06-27] MEDS: ISOSORBIDE MONONITRATE 30 MG TAB.ER.24H PO SCH (08:50)
[2022-06-27] MEDS: CHOLECALCIFEROL (VITAMIN D3) 5,000 UNIT TABLET PO SCH (08:52)
[2022-06-27] MEDS: ASCORBIC ACID 500 MG TABLET PO SCH ×2 (08:52→22:21)
[2022-06-27] MEDS: LOSARTAN POTASSIUM 25 MG TABLET PO SCH (08:53)
[2022-06-27] MEDS: CARVEDILOL 3.125 MG TABLET (COREG) PO SCH ×2 (08:54→22:26)
[2022-06-27] MEDS: methylPREDNISolone SOD SUCC/PF 62.5 MG/ML VIAL IVP SCH (08:56)
[2022-06-27 12:00] VITALS: BP_SYST 140
[2022-06-27] MEDS: cefTRIAXone 1 GM in D5W 50 ML IV SCH (18:42)
[2022-06-27] MEDS ORDERED: ACETAMINOPHEN 650 MG/20.3 ML UDC GT PRN (19:45)
[2022-06-27 20:00] VITALS: BP_SYST 140
[2022-06-28 00:52] VITALS: BP_SYST 138
[2022-06-28 07:01] LABS: BASOPHILS % (AUTO) 0.1 % (0.0-2.0); HEMATOCRIT 25.4 % (36-48); HEMOGLOBIN 8.5 g/dL (12.0-16.0); LYMPHOCYTES # (AUTO) 1.1 K/uL (1.0-5.5); LYMPHOCYTES % (AUTO) 9.2 % (20.5-51.5); MEAN CORPUSCULAR HEMOGLOBIN 30 pg (27-31); MEAN CORPUSCULAR HGB CONC 34 % (32-36); MEAN CORPUSCULAR VOLUME 89 fL (79.0-98.0); MONOCYTES # (AUTO) 1.2 K/uL (0.0-1.0); MONOCYTES % (AUTO) 10.2 % (1.7-9.3); NEUTROPHILS # (AUTO) 9.3 K/uL (1.8-7.7); NEUTROPHILS % (AUTO) 80.5 % (40.0-70.0); PLATELET COUNT (AUTO) 281 K/uL (130-430); RED BLOOD CELL COUNT(AUTO) 2.86 MIL/uL (4.2-6.2); WHITE BLOOD COUNT (AUTO) 11.6 K/uL (4.8-10.8)
[2022-06-28 07:40] LABS: ANION GAP 5 (5-15); CALCIUM 8.4 mg/dL (8.4-11.0); CHLORIDE 103 mmol/L (98-107); CREATININE 0.78 mg/dL (0.55-1.30); GLUCOSE 80 mg/dL (70-99); UREA NITROGEN, BLOOD 27 mg/dL (8-21)
[2022-06-28 08:15] VITALS: BP_SYST 136
[2022-06-28] MEDS: CARVEDILOL 3.125 MG TABLET (COREG) PO SCH ×2 (09:47→20:15)
[2022-06-28] MEDS: ISOSORBIDE MONONITRATE 30 MG TAB.ER.24H PO SCH (09:48)
[2022-06-28] MEDS: CHOLECALCIFEROL (VITAMIN D3) 5,000 UNIT TABLET PO SCH (09:49)
[2022-06-28] MEDS: methylPREDNISolone SOD SUCC/PF 62.5 MG/ML VIAL IVP SCH (09:49)
[2022-06-28] MEDS: LOSARTAN POTASSIUM 25 MG TABLET PO SCH (09:50)
[2022-06-28] MEDS: ASCORBIC ACID 500 MG TABLET PO SCH ×2 (10:44→20:11)
[2022-06-28 11:53] VITALS: BP_SYST 125
[2022-06-28 17:20] VITALS: BP_SYST 95
[2022-06-28] MEDS: cefTRIAXone 1 GM in D5W 50 ML IV SCH (17:50)
[2022-06-28 20:44] VITALS: BP_SYST 95
[2022-06-29 04:00] VITALS: BP_SYST 98
[2022-06-29 08:00] VITALS: BP_SYST 106
[2022-06-29] MEDS: CARVEDILOL 3.125 MG TABLET (COREG) PO SCH ×2 (09:00→20:14)
[2022-06-29] MEDS: CHOLECALCIFEROL (VITAMIN D3) 5,000 UNIT TABLET PO SCH (10:08)
[2022-06-29] MEDS: methylPREDNISolone SOD SUCC/PF 62.5 MG/ML VIAL IVP SCH (10:08)
[2022-06-29] MEDS ORDERED: predniSONE 20 MG TABLET PO ONE (11:30)
[2022-06-29 12:00] VITALS: BP_SYST 113
[2022-06-29 16:00] VITALS: BP_SYST 104
[2022-06-29] MEDS: cefTRIAXone 1 GM in D5W 50 ML IV SCH (17:30)
[2022-06-29] MEDS: ASCORBIC ACID 500 MG TABLET PO SCH ×2 (18:18→20:13)
[2022-06-29 20:00] VITALS: BP_SYST 97
[2022-06-30] VITALS: BP_SYST 97; BP_SYST 99
[2022-06-30 08:43] VITALS: BP_SYST 119
[2022-06-30] MEDS: ASCORBIC ACID 500 MG TABLET PO SCH ×2 (08:45→21:27)
[2022-06-30] MEDS: predniSONE 20 MG TABLET PO SCH (08:46)
[2022-06-30] MEDS: CARVEDILOL 3.125 MG TABLET (COREG) PO SCH ×2 (08:47→21:35)
[2022-06-30] MEDS: CHOLECALCIFEROL (VITAMIN D3) 5,000 UNIT TABLET PO SCH (08:48)
[2022-06-30 11:56] VITALS: BP_SYST 112
[2022-06-30] MEDS: INSULIN REGULAR, HUMAN 100 UNITS/ML, 3 ML VIAL (humuLIN R) SUBCUT PRN ×2 (12:30→17:32)
[2022-06-30 16:45] VITALS: BP_SYST 144
[2022-06-30 20:00] VITALS: BP_SYST 121
[2022-07-01 00:33] VITALS: BP_SYST 128
[2022-07-01 07:06] LABS: BASOPHILS % (AUTO) 0.2 % (0.0-2.0); EOSINOPHILS # (AUTO) 0.1 K/uL (0.0-0.4); EOSINOPHILS % (AUTO) 1.4 % (0.0-4.0); HEMATOCRIT 29.1 % (36-48); LYMPHOCYTES # (AUTO) 1.6 K/uL (1.0-5.5); LYMPHOCYTES % (AUTO) 18.2 % (20.5-51.5); MEAN CORPUSCULAR HEMOGLOBIN 31 pg (27-31); MEAN CORPUSCULAR HGB CONC 34 % (32-36); MEAN CORPUSCULAR VOLUME 89 fL (79.0-98.0); MONOCYTES # (AUTO) 0.8 K/uL (0.0-1.0); NEUTROPHILS # (AUTO) 6.4 K/uL (1.8-7.7); NEUTROPHILS % (AUTO) 71.2 % (40.0-70.0); PLATELET COUNT (AUTO) 262 K/uL (130-430); RED BLOOD CELL COUNT(AUTO) 3.27 MIL/uL (4.2-6.2); RED CELL DISTRIBUTION WIDTH 14.7 % (9.0-15.0)
[2022-07-01 08:24] LABS: ANION GAP 9 (5-15); CALCIUM 8.9 mg/dL (8.4-11.0); CHLORIDE 103 mmol/L (98-107); CREATININE 0.67 mg/dL (0.55-1.30); GLUCOSE 79 mg/dL (70-99); UREA NITROGEN, BLOOD 25 mg/dL (8-21)
[2022-07-01] MEDS: predniSONE 20 MG TABLET PO SCH (08:56)
[2022-07-01] MEDS: CHOLECALCIFEROL (VITAMIN D3) 5,000 UNIT TABLET PO SCH (08:56)
[2022-07-01] MEDS: CARVEDILOL 3.125 MG TABLET (COREG) PO SCH (08:57)
[2022-07-01] MEDS: ASCORBIC ACID 500 MG TABLET PO SCH (08:58)
[2022-07-01 11:20] VITALS: BP_SYST 107
[2022-07-01 14:20] VITALS: BP_SYST 103
[2022-07-01 14:26] VITALS: BP_SYST 103
== END 2022-07-01 15:15 | disposition home health service (06) | DRG 871 ==
LOC: SED 21:48 → STU 06-22 06:35 → SMU 06-30 18:59
PROVIDERS: ADMIT Internal Medicine; ATTEND Internal Medicine
PROC: 0W9B3ZZ Drainage of Left Pleural Cavity, Percutaneous Approach (ICD-10-PCS; principal; 2022-06-26)
DX: A41.9 Sepsis, unspecified organism (principal); J12.82 Pneumonia due to coronavirus disease 2019; U07.1 COVID-19; J96.01 Acute respiratory failure with hypoxia; I42.9 Cardiomyopathy, unspecified; J90 Pleural effusion, not elsewhere classified; F03.90 Unspecified dementia, unspecified severity, without behavioral disturbance, psychotic disturbance, mood disturbance, and anxiety; I11.0 Hypertensive heart disease with heart failure; I50.9 Heart failure, unspecified; G40.909 Epilepsy, unspecified, not intractable, without status epilepticus; M81.0 Age-related osteoporosis without current pathological fracture; I48.91 Unspecified atrial fibrillation; R13.10 Dysphagia, unspecified; Z88.8 Allergy status to other drugs, medicaments and biological substances; Z79.899 Other long term (current) drug therapy; Z79.01 Long term (current) use of anticoagulants; Z93.1 Gastrostomy status
CPT/HCPCS: 32555; 36415; 36600; 70450-TC; 71045; 71250-TC; 76376; 80048; 80053; 81000; 82042; 82803-TC; 82962; 83605; 83690; 83735; 83880; 84157; 84484; 85025; 85049-TC; 85379; 85610-TC; 85730-TC; 86140; 87040; 87081; 93005; 93306; 93970; 97110-GP; 97112-GP; 97163-GP; 97530-GP; 99285; G0378; J0456; J0696; J1650; J1815; J2543; J2930; J3490; J7050; J7060; J7512

== ENCOUNTER 2022-07-24 16:43 | Inpatient (IN) | payer OTHER ==
[~2022-07-24] VITALS: Ht 165.1 cm; Wt 57.2 kg
[~2022-07-24 16:43] MED LIST changes: -ALBU2.5V7 INH; -AMIO200T61 PO; -APIX2.5T PO; -CALC-823 PO; +CARV12.548 PO; -CARV25TA55 GT; +CHOL500013 PO; -COR3.125 PO; -FURO-150 PO; +KEF250/5 GT; +PRED10TA PO; +Zinc Sulfate PO
[2022-07-24 16:47] VITALS: BP_SYST 149
--- NOTE | 2022-07-24 17:28 | NUR ---
ER at bedside examining patient.
[2022-07-24] MEDS ORDERED: NACL 0.9% 1,000 ML IV ONE (17:30)
[2022-07-24] MEDS ORDERED: MORPHINE 2 MG/ML INJ. SYRINGE IVP ONE (17:30)
[2022-07-24] MEDS ORDERED: ONDANSETRON HCL 4 MG/2 ML VIAL IVP ONE (17:30)
--- NOTE | 2022-07-24 18:20 | NUR ---
Patient to ER bed 4 to gown for evaluation. Side rails up.
[2022-07-24 18:38] LABS: BASOPHILS % (AUTO) 0.4 % (0.0-2.0); EOSINOPHILS # (AUTO) 0.1 K/uL (0.0-0.4); EOSINOPHILS % (AUTO) 0.6 % (0.0-4.0); HEMATOCRIT 28.6 % (36-48); HEMOGLOBIN 9.7 g/dL (12.0-16.0); LYMPHOCYTES # (AUTO) 0.8 K/uL (1.0-5.5); LYMPHOCYTES % (AUTO) 6.9 % (20.5-51.5); MEAN CORPUSCULAR HEMOGLOBIN 30 pg (27-31); MEAN CORPUSCULAR HGB CONC 34 % (32-36); MEAN CORPUSCULAR VOLUME 89 fL (79.0-98.0); MONOCYTES # (AUTO) 1.3 K/uL (0.0-1.0); MONOCYTES % (AUTO) 11.8 % (1.7-9.3); NEUTROPHILS # (AUTO) 8.9 K/uL (1.8-7.7); NEUTROPHILS % (AUTO) 80.3 % (40.0-70.0); PLATELET COUNT (AUTO) 259 K/uL (130-430); RED BLOOD CELL COUNT(AUTO) 3.21 MIL/uL (4.2-6.2); RED CELL DISTRIBUTION WIDTH 14.9 % (9.0-15.0); WHITE BLOOD COUNT (AUTO) 11.1 K/uL (4.8-10.8)
--- NOTE | 2022-07-24 18:45 | NUR ---
PT presents to ed with c/o abd pain with n/v. per emt family reports pt has "dark smelly urine". pt awake, speaks clear and full sentences. safety measures in place. peripheral iv placed to LFA, tolerated well. placed on full cm. swabbed bilateral nares for covid nadeem, dropped off at lab
[2022-07-24 19:01] LABS: ANION GAP 6 (5-15); CALCIUM 8.6 mg/dL (8.4-11.0); CHLORIDE 98 mmol/L (98-107); CREATININE 0.92 mg/dL (0.55-1.30); GLUCOSE 121 mg/dL (70-99); UREA NITROGEN, BLOOD 21 mg/dL (8-21)
[2022-07-24 19:07] LABS: ALANINE AMINOTRANSFERASE 6 U/L (12-78); ALBUMIN 2.4 g/dL (3.4-4.8); ASPARTATE AMINOTRANSFERASE 10 U/L (10-37); LIPASE 65 U/L (73-393); TOTAL BILIRUBIN 0.4 mg/dL (0.0-1.0)
--- NOTE | 2022-07-24 19:23 | NUR ---
report given to farrah morales
[2022-07-24 19:30] LABS: CLARITY/URINE SLIGHTLY CLOUDY (CLEAR); COLOR,URINE YELLOW (YELLOW); PROTEIN URINE 1+ (NEGATIVE)
[2022-07-24 19:31] LABS: BILIRUBIN,URINE NEGATIVE (NEGATIVE); BLOOD, URINE 3+ (NEGATIVE); GLUCOSE,URINE NEGATIVE (NEGATIVE); KETONES,URINE TRACE (NEGATIVE); LEUKOCYTE ESTERASE ,URINE 3+ (NEGATIVE); NITRITE, URINE NEGATIVE (NEGATIVE); UROBILINOGEN,URINE 0.2 (0.2-1.0)
[2022-07-24 19:32] LABS: BACTERIA,URINE MODERATE /HPF (None Seen); MUCUS,URINE None Seen /LPF (None Seen); WBC,URINE >100 /HPF (0-3)
[2022-07-24] MEDS ORDERED: cefTRIAXone 1 GM in D5W 50 ML IV ONE (19:45)
--- NOTE | 2022-07-24 20:25 | NUR ---
PATIENT SIGNED INFORMED CONSENT FOR CT SCAN OF ABD/PELVIS WITH CONTRAST.
[2022-07-24] MEDS ORDERED: iohexoL 350 mgI/mL, 100 ML INFUS..BTL IV ONE (20:26)
--- NOTE | 2022-07-24 22:37 | NUR ---
Admit bed requested Patient will be admitted to care of . Admitted to MED SURG unit. Diagnosis UTI Inpatient (Yes or No) YES Observation (Yes or No) NO Orientation concerns or request close to nursing station (Yes or No) NO Covid Status NEGATIVE On vent or bipap NO Isolation requirements NO Needs a sitter NO From Home (Yes or if No enter name of facility) YES Requires Dialysis (Yes or No) NO Med Rec Completed (Yes of No) PENDING
[2022-07-24] MEDS ORDERED: ACETAMINOPHEN 650 MG/20.3 ML UDC PO PRN (22:45)
[2022-07-24] MEDS: 0.45% NACL 1,000 ML IV SCH (22:45)
[2022-07-24] MEDS ORDERED: CEFAZOLIN 1 GM IVPB PREMIX 50 ML IV ONE (23:58)
--- NOTE | 2022-07-25 00:14 | NUR ---
0014 REPORT ENDORSED TO PIETRO RN AT MED SUR[facility]. PT TRANSFER TO ROOM VIA GURNEY. PT AWAKE, ALERT, VSS, ROCEPHINE 1 GM IVPB INFUSING.
[2022-07-25 00:45] VITALS: BP_SYST 110
--- NOTE | 2022-07-25 01:07 | NUR ---
Patient in bed. Admitted to room 132 (a). No acute distress noted. Skin warm and dry. No complaint of pain. Will continue to monitor.
[2022-07-25 08:00] VITALS: BP_SYST 108
--- NOTE | 2022-07-25 08:00 | NUR ---
OPENING NOTE Patient in bed resting with eyes closed, no sign of distress or pain. Patient's breathing is nonlabored and even. IV is patent and running prescribed fluid. All needs met at this time and safety checks made.
[2022-07-25] MEDS: cefTRIAXone 1 GM IVPB PREMIX 50 ML IV SCH (09:20)
[2022-07-25 12:00] VITALS: BP_SYST 102
[2022-07-25] MEDS: 0.45% NACL 1,000 ML IV SCH (14:56)
--- NOTE | 2022-07-25 15:00 | NUR ---
AT BEDSIDE Dr Jones at bedside speaking with patient's family. Patient is likely to be discharged home tomorrow morning per MD. All questions answered by .
[2022-07-25 16:00] VITALS: BP_SYST 129
[2022-07-25 19:00] VITALS: BP_SYST 124
--- NOTE | 2022-07-25 19:05 | NUR ---
CLOSING NOTE Patient in bed resting with eyes closed, no sign of distress or pain. Patient has been cooperative with her care throughout the shift. Daughter, Leoncio, spoke with Dr Jones and has been updated on the plan of care. IV is patent and running prescribed fluids. Gtube is patent and running prescribed feeding. All needs met throughout the shift. Safety checks made. Will endorse to rn wound nurse.
--- NOTE | 2022-07-25 20:00 | NUR ---
PATIENT ALERT AND VERBALLY RESPONSIVE. A&O X3. ADMITTED DUE TO DX: UTI. HX: CHF, HTN, GTUBE, CVA. STABLE AND AFEBRILE AT THIS TIME. BREATHING EVEN AND NON LABORED. NO SOB/ DYSPNEA. NO N/V/D. HOB ELEVATED. G TUBE IN PLACE 0 RESIDUAL. CONTINUED ON JEVITY 1.2@ 40ML/HR. TOLERATING DIET WELL. CONTINUED ON IVF ORDERED. PATIENT IS INCONTINENT OF B&B. PERICARE PROVIDED. SKIN DRY AND INTACT. G TUBE SITE CLEAN DRY AND INTACT. DENIES PAIN. IV RFA IN PLACE IVF RUNNING ORDERED. IV SITE DRSG CLEAN DRY AND INTACT. ALL NEEDS MET. CALL LIGHT IN REACH. PATIENT REPOSITIONED Q2H. REQUIRES EXTENSIVE ASSIST WITH ADL'S AND TOILETING. BED LOCKED IN LOWEST POSITION. CONTINUE PLAN OF CARE. VS WNL. Addendum: 07/26/22 at 0449 by [facility], [address] CONTINUED ON IV ATB ROCEPHIN FOR UTI NO ADVERSE REACTIONS NOTED.
[2022-07-26 01:02] VITALS: BP_SYST 104
[2022-07-26] MEDS: 0.45% NACL 1,000 ML IV SCH (02:28)
[2022-07-26 04:00] VITALS: BP_SYST 120
--- NOTE | 2022-07-26 04:41 | NUR ---
PATIENT RESTING: Patient resting quietly. No acute distress noted. Vital signs within normal range.
--- NOTE | 2022-07-26 06:56 | NUR ---
CLOSING NOTE: PATIENT SLEEPING COMFORTABLY IN BED. EASILY AWAKENED UPON AROUSAL. STABLE AND AFEBRILE. DENIES PAIN. BREATHING EVEN AND NON LABORED. G TUBE IN PLACE. TOLERATING G TUBE FEEDING WELL. IVF ORDERED. HOB ELEVATED. NO SOB DYSPNEA. LINEN CHANGED/ PERICARE PROVIDED. CALL LIGHT IN REACH. SAFETY MEASURES OBSERVED. BED ALARM ON. REMINDED PATIENT TO USE CALL LIGHT IN NEED OF ASSISTANCE. CONTINUE PLAN OF CARE.
--- NOTE | 2022-07-26 07:15 | NUR ---
OPENING NOTE Patient in bed resting, no sign of distress and patient denies pain. Patient is oriented x3 but forgetful. Breathing is nonlabored and even on 1L nasal cannula. IV is patent and running prescribed fluids. Gtube is patent and running prescribed feeding; patient tolerating well. All needs met at this time and safety checks made.
[2022-07-26 08:00] VITALS: BP_SYST 115
[2022-07-26 08:18] LABS: BASOPHILS % (AUTO) 0.2 % (0.0-2.0); EOSINOPHILS # (AUTO) 0.2 K/uL (0.0-0.4); EOSINOPHILS % (AUTO) 2.9 % (0.0-4.0); HEMATOCRIT 25.7 % (36-48); HEMOGLOBIN 8.7 g/dL (12.0-16.0); LYMPHOCYTES # (AUTO) 1.1 K/uL (1.0-5.5); MEAN CORPUSCULAR HEMOGLOBIN 30 pg (27-31); MEAN CORPUSCULAR HGB CONC 34 % (32-36); MEAN CORPUSCULAR VOLUME 89 fL (79.0-98.0); MONOCYTES # (AUTO) 0.9 K/uL (0.0-1.0); MONOCYTES % (AUTO) 12.4 % (1.7-9.3); NEUTROPHILS % (AUTO) 69.5 % (40.0-70.0); PLATELET COUNT (AUTO) 243 K/uL (130-430); RED BLOOD CELL COUNT(AUTO) 2.88 MIL/uL (4.2-6.2); WHITE BLOOD COUNT (AUTO) 7.3 K/uL (4.8-10.8)
[2022-07-26 09:11] LABS: ALANINE AMINOTRANSFERASE 6 U/L (12-78); ALBUMIN 1.9 g/dL (3.4-4.8); ANION GAP 6 (5-15); ASPARTATE AMINOTRANSFERASE 11 U/L (10-37); CALCIUM 8.5 mg/dL (8.4-11.0); CHLORIDE 103 mmol/L (98-107); CREATININE 0.71 mg/dL (0.55-1.30); GLUCOSE 116 mg/dL (70-99); TOTAL BILIRUBIN 0.2 mg/dL (0.0-1.0); UREA NITROGEN, BLOOD 14 mg/dL (8-21)
[2022-07-26] MEDS: cefTRIAXone 1 GM IVPB PREMIX 50 ML IV SCH (09:41)
[2022-07-26 10:48] VITALS: BP_SYST 115
[2022-07-26 12:00] VITALS: BP_SYST 110
[2022-07-26] MEDS ORDERED: IPRATROPIUM/ALBUTEROL SULFATE 3 ML AMPUL.NEB (DUONEB) INH ONE (12:30)
[2022-07-26 12:34] VITALS: BP_SYST 110
[2022-07-26] MEDS ORDERED: BACL20 PO (12:46)
--- NOTE | 2022-07-26 14:30 | NUR ---
D/C Patient Patient given medication reconciliation form and D/C instructions. Exit Care provided. Patient verbalized understanding. MD discussed with patient and daughter the results and treatment provided. Ambulatory with assist for discharge to home via private auto with family. Patient in stable condition, ID band removed. IV catheter removed, intact and dressing applied, no active bleeding. Patient educated on pain management. All belongings sent with patient.
[2022-07-26] MEDS ORDERED: IPRATROPIUM/ALBUTEROL SULFATE 3 ML AMPUL.NEB (DUONEB) INH SCH (15:00)
== END 2022-07-26 14:30 | disposition home or self-care (01) | DRG 70 ==
LOC: SED 16:43 → SMU 22:34
PROVIDERS: ADMIT Internal Medicine; ATTEND Internal Medicine
DX: G93.41 Metabolic encephalopathy (principal); E43 Unspecified severe protein-calorie malnutrition; N39.0 Urinary tract infection, site not specified; I50.9 Heart failure, unspecified; I11.0 Hypertensive heart disease with heart failure; R13.10 Dysphagia, unspecified; Z20.822 Contact with and (suspected) exposure to COVID-19; Z88.8 Allergy status to other drugs, medicaments and biological substances; Z86.73 Personal history of transient ischemic attack (TIA), and cerebral infarction without residual deficits; Z68.21 Body mass index [BMI] 21.0-21.9, adult; Z74.01 Bed confinement status
CPT/HCPCS: 36415; 71045; 76376; 80053; 81000; 83690; 84484; 85025; 87086; 93005; 94640; 94760; 96361; 96374; 96375; 99285; J0690; J0696; J2270; J2405; Q9967